=== PATIENT | female | born 1950 | race Caucasian/White ===

== ENCOUNTER 2017-12-05 11:19 | Outpatient (CLI) | payer BC | END 2017-12-05 11:20 | disposition home or self-care (01) | PROVIDERS: ATTEND Otolaryngology Plastic Surgery within the Head & Neck | DX: R13.11 Dysphagia, oral phase (principal) | CPT/HCPCS: 74230 ==

== ENCOUNTER 2019-01-21 19:30 | Outpatient (CLI) | payer BC, MEDICARE | END 2019-01-21 19:31 | disposition home or self-care (01) | LOC: SLEEPLAB 19:30 | PROVIDERS: ATTEND Internal Medicine Critical Care Medicine | DX: G47.33 Obstructive sleep apnea (adult) (pediatric) (principal); G47.00 Insomnia, unspecified; G47.61 Periodic limb movement disorder; G47.31 Primary central sleep apnea; R53.83 Other fatigue; R40.0 Somnolence; R09.89 Other specified symptoms and signs involving the circulatory and respiratory systems; R06.89 Other abnormalities of breathing | CPT/HCPCS: 95811 ==

== ENCOUNTER 2019-03-20 19:30 | Outpatient (CLI) | payer MEDICARE | END 2019-03-20 19:31 | disposition home or self-care (01) | LOC: SLEEPLAB 19:30 | PROVIDERS: ATTEND Internal Medicine Critical Care Medicine | DX: G47.33 Obstructive sleep apnea (adult) (pediatric) (principal); G31.84 Mild cognitive impairment of uncertain or unknown etiology; R53.83 Other fatigue; R09.89 Other specified symptoms and signs involving the circulatory and respiratory systems; R06.83 Snoring; G47.00 Insomnia, unspecified; G47.10 Hypersomnia, unspecified; G47.61 Periodic limb movement disorder; G47.31 Primary central sleep apnea; E66.9 Obesity, unspecified; Z68.31 Body mass index [BMI] 31.0-31.9, adult | CPT/HCPCS: 95811 ==